=== PATIENT | male | born 1955 | race Caucasian/White ===

== ENCOUNTER 2025-06-20 13:39 | Outpatient (CLI) | payer MEDICARE, OTHER, SELFPAY ==
[2025-06-20 13:40] LABS: ALT 45 U/L (16-63); AST 39 U/L (15-37); Albumin 4.0 g/dL (3.4-5.0); Alkaline Phosphatase 130 U/L (46-116); Bilirubin, Direct 0.2 mg/dL (0.0-0.2); Bilirubin, Total 0.8 mg/dL (0.2-1.0); Total Protein 7.4 g/dL (6.4-8.2)
[2025-06-24 17:25] LABS: CA 19-9 29 U/mL (<35)
== END 2025-06-20 13:40 | disposition home or self-care (01) ==
LOC: LBO 13:41
PROVIDERS: Visit Provider Internal Medicine Hematology & Oncology
DX: C25.9 Malignant neoplasm of pancreas, unspecified (principal)
CPT/HCPCS: 36415; 80076; 86301